=== PATIENT | female | born 1975 | race Caucasian/White ===

== ENCOUNTER → 2022-03-10 | Outpatient (CLI) | payer OTHER ==
[~2022-03-10] MED LIST: KEFLEX CAP 500500 MG PO; PYRIDIUM100 MG PO; ZOFRAN ODT 4 MG4 MG PO
== END ==
LOC: EMI 12:57
DX: M51.16 Intervertebral disc disorders with radiculopathy, lumbar region (principal)
CPT/HCPCS: 72148

== ENCOUNTER → 2022-04-08 | Outpatient (CLI) | payer OTHER | LOC: US 13:30 | DX: E04.1 Nontoxic single thyroid nodule (principal) | CPT/HCPCS: 76536 ==

== ENCOUNTER → 2022-06-10 | Outpatient (CLI) | payer OTHER | LOC: EMI 08:50 | DX: S79.929A Unspecified injury of unspecified thigh, initial encounter (principal) | CPT/HCPCS: 73718 ==